=== PATIENT | male | born 1950 | race Caucasian/White ===

== ENCOUNTER 2020-11-19 07:15 | Emergency (ER) | payer OTHER ==
[2020-11-19 07:58] LABS: HEMOGLOBIN 14.7 gm/dl (14.0-17.5); RED BLOOD COUNT 4.7 M/UL (4.20-5.50); WHITE BLOOD COUNT 4.1 K/UL (4.5-11.0)
== END 2020-11-19 11:29 | disposition short-term general hospital (02) ==
LOC: ER1 07:15
PROVIDERS: Emergency Medicine
DX: I21.4 Non-ST elevation (NSTEMI) myocardial infarction (principal); I10 Essential (primary) hypertension; Z20.822 Contact with and (suspected) exposure to COVID-19
CPT/HCPCS: 70450; 71045; 80053; 82550; 82553; 83605; 83690; 84484; 85025; 85379; 85610; 85730; 86850; 86900; 86901; 93005; 99285; J1650; U0002